=== PATIENT | female | born 1935 | race Caucasian/White ===

== ENCOUNTER 2021-08-31 00:15 | Inpatient (IN) | payer MEDICARE ==
[~2021-08-31] VITALS: Ht 154.9 cm; Wt 53.2 kg
[2021-08-31 00:46] LABS: GLUCOSE,POINT OF CARE 150 MG/DL (70-110)
[2021-08-31 01:29] LABS: COVID AG,FIA SOURCE NASOPHARYNGEAL
[2021-08-31 01:40] LABS: BASOPHILS % (AUTO) 0.7 % (0.0-2.0); EOSINOPHILS % (AUTO) 0.5 % (1.0-6.0); HEMOGLOBIN 12.1 g/dL (12.0-16.0); LYMPHOCYTES # (AUTO) 1.8 K/uL (1.0-4.8); LYMPHOCYTES % (AUTO) 22.5 % (22.0-44.0); MEAN CORPUSCULAR HEMOGLOBIN 30.1 pg (26.0-34.0); MEAN CORPUSCULAR HGB CONC 33.6 G/dL (31.0-37.0); MEAN CORPUSCULAR VOLUME 90 fL (80-100); MONOCYTES # (AUTO) 0.8 K/uL (0.1-1.0); MONOCYTES % (AUTO) 9.5 % (2.0-9.0); NEUTROPHILS # (AUTO) 5.4 K/uL (1.8-7.7); NEUTROPHILS % (AUTO) 66.8 % (40.0-70.0); PLATELET COUNT (AUTO) 228 K/uL (150-450); RED BLOOD CELL COUNT(AUTO) 4.01 MIL/uL (4.00-5.20); RED CELL DISTRIBUTION WIDTH 13.4 % (11.5-14.5)
[2021-08-31 01:41] LABS: AMPHET/METH SCREEN,URINE NEGATIVE (NEGATIVE); BARBITURATE SCREEN, URINE NEGATIVE (NEGATIVE); BENZODIAZEPINES SCREEN,URINE NEGATIVE (NEGATIVE); CANNABINOID SCREEN,URINE NEGATIVE (NEGATIVE); COCAINE SCREEN,URINE NEGATIVE (NEGATIVE); METHADONE SCREEN, URINE NEGATIVE (NEGATIVE); OPIATE SCREEN,URINE NEGATIVE (NEGATIVE)
[2021-08-31 01:42] LABS: ANION GAP 9 mmol/L (8-16); CALCIUM, TOTAL 8.6 mg/dL (8.8-10.5); CARBON DIOXIDE 25 mmol/L (22-29); CHLORIDE 106 mmol/L (98-107); CREATININE 0.81 mg/dL (0.60-1.30); GLUCOSE,RANDOM 119 mg/dL (70-110); POTASSIUM 4.4 mmol/L (3.5-5.1); SODIUM SERUM 140 mmol/L (136-145); UREA NITROGEN, BLOOD 25 mg/dL (7-18)
[2021-08-31 01:43] LABS: PHENCYCLIDINE SCREEN,URINE NEGATIVE (NEGATIVE)
[2021-08-31] MEDS ORDERED: QUEtiapine FUMARATE 100 MG TABLET PO PRN (01:45)
[2021-08-31 01:47] LABS: ALANINE AMINOTRANSFERASE 28 U/L (12-78); ALBUMIN 3.4 g/dL (3.4-5.0); ALKALINE PHOSPHATASE 66 U/L (46-116); ASPARTATE AMINOTRANSFERASE 27 U/L (15-37); BILIRUBIN,TOTAL 0.2 mg/dL (0.1-1.0); TOTAL PROTEIN, SERUM 6.8 g/dL (6.4-8.2)
[2021-08-31 01:49] LABS: GLOMERULAR FILTR. RATE CALC > 60 mL/min (>60)
[2021-08-31] MEDS: QUEtiapine FUMARATE 25 MG TABLET PO ONE ×2 (02:07→02:46)
[2021-08-31] MEDS: LORazepam 1 MG TABLET PO PRN ×2 (02:07→13:59)
[2021-08-31 02:58] LABS: APPEARANCE,URINE CLEAR (CLEAR); BILIRUBIN,URINE NEGATIVE (NEGATIVE); GLUCOSE, URINE (UA) 100 mg/dL (NEGATIVE); KETONES,URINE NEGATIVE (NEGATIVE); LEUKOCYTE ESTERASE ,URINE MODERATE (NEGATIVE); NITRATE,URINE NEGATIVE (NEGATIVE); OCCULT BLOOD,URINE NEGATIVE (NEGATIVE); PROTEIN,URINE NEGATIVE (NEGATIVE)
[2021-08-31 03:00] LABS: BACTERIA,URINE Few /HPF (None Seen); RBC,URINE 0-2 /HPF (0-2)
[2021-08-31] MEDS ORDERED: QUEtiapine FUMARATE 100 MG TABLET PO ONE (13:30)
[2021-08-31] MEDS ORDERED: LORazepam 1 MG TABLET PO ONE (13:30)
[2021-09-01 06:36] LABS: CHOL/HDL RATIO 2.5 (3.9-5.7); CHOLESTEROL 153 mg/dL (131-200); HDL CHOLESTEROL 61 mg/dL (40-60); LDL CHOL (CALC.) 75 mg/dL (0-130); TRIGLYCERIDES 86 mg/dL (15-150)
[2021-09-01] MEDS ORDERED: QUEtiapine FUMARATE 100 MG TABLET PO ONE (07:15)
[2021-09-01] MEDS ORDERED: LORazepam 1 MG TABLET PO ONE (07:15)
[2021-09-01] MEDS ORDERED: BACITRACIN 28 GM OINTMENT TP PRN (08:45)
[2021-09-01] MEDS ORDERED: DOCUSATE SODIUM 100 MG CAPSULE PO PRN (08:45)
[2021-09-01] MEDS ORDERED: PETROLATUM,WHITE 28 GM JELLY TP PRN (08:45)
[2021-09-01] MEDS ORDERED: ONDANSETRON HCL 4 MG TABLET PO PRN (08:45)
[2021-09-01] MEDS ORDERED: ACETAMINOPHEN 325 MG TABLET PO PRN (08:45)
[2021-09-01] MEDS ORDERED: OMEPRAZOLE 20 MG CAPSULE PO PRN (08:45)
[2021-09-01] MEDS ORDERED: ALBUTEROL SULFATE HFA 90 MCG/PUFF 8 GM INHALER IH PRN (08:45)
[2021-09-01] MEDS ORDERED: MAG HYDROX/AL HYDROX/SIMETH ES 30 ML SUSPENSION UDCUP PO PRN (08:45)
[2021-09-01] MEDS ORDERED: MAGNESIUM HYDROXIDE SUSPENSION 30 ML UDCUP PO PRN (08:45)
[2021-09-01] MEDS ORDERED: LOPERAMIDE HCL 2 MG CAPSULE PO PRN (08:45)
[2021-09-01] MEDS ORDERED: CloNIDine HCL 0.1 MG TABLET PO PRN (08:45)
[2021-09-01] MEDS ORDERED: BENZOCAINE/MENTHOL LOZENGE PO PRN (08:45)
[2021-09-01] MEDS: METOPROLOL TARTRATE 25 MG TABLET PO SCH ×2 (09:34→09:36)
[2021-09-01 10:03] VITALS: BP 154/75
[2021-09-01 10:55] VITALS: BP 154/75
[2021-09-01] MEDS ORDERED: INFLUENZA VIRUS VACCINE QVS 2021-22 (6MO+)/PF 60 MCG/0.5 ML SYRINGE IM. ONE (11:30)
[2021-09-01] MEDS ORDERED: PNEUMOCOCCAL VACCINE POLYVALENT 0.5 ML VIAL [PPSV23] IM. ONE (11:45)
[2021-09-01 16:32] VITALS: BP 131/84
[2021-09-01 18:32] VITALS: BP 131/84
[2021-09-01] MEDS: LORazepam 1 MG TABLET PO PRN (19:01)
[2021-09-02] MEDS: METOPROLOL TARTRATE 25 MG TABLET PO SCH ×2 (09:00→16:42)
[2021-09-02] MEDS: RisperiDONE 1 MG TABLET PO SCH ×2 (09:00→16:42)
[2021-09-02 16:00] VITALS: BP 135/70
[2021-09-03 08:00] VITALS: BP 133/83
[2021-09-03 08:43] LABS: CHOL/HDL RATIO 3.1 (3.9-5.7); HEMOGLOBIN A1C 6.1 % (3.8-5.6)
[2021-09-03] MEDS: RisperiDONE 1 MG TABLET PO SCH ×2 (09:00→16:26)
[2021-09-03] MEDS: METOPROLOL TARTRATE 25 MG TABLET PO SCH ×2 (09:00→16:26)
[2021-09-03 09:54] LABS: THYROID STIMULATING HORMONE 2.32 uIU/mL (0.36-3.74)
[2021-09-03 17:03] VITALS: BP 148/84
[2021-09-04] MEDS: RisperiDONE 1 MG TABLET PO SCH ×2 (09:00→16:26)
[2021-09-04] MEDS: METOPROLOL TARTRATE 25 MG TABLET PO SCH ×2 (09:00→16:26)
[2021-09-04 09:20] VITALS: BP 133/69
[2021-09-04 16:15] VITALS: BP 125/76
[2021-09-05 08:19] VITALS: BP 155/93
[2021-09-05] MEDS: METOPROLOL TARTRATE 25 MG TABLET PO SCH ×2 (08:44→17:00)
[2021-09-05] MEDS: RisperiDONE 2 MG TABLET PO SCH ×2 (08:45→17:00)
[2021-09-06] MEDS: METOPROLOL TARTRATE 25 MG TABLET PO SCH ×2 (09:00→16:41)
[2021-09-06] MEDS: RisperiDONE 2 MG TABLET PO SCH ×2 (09:00→16:41)
[2021-09-06 14:08] LABS: APPEARANCE,URINE CLEAR (CLEAR); BILIRUBIN,URINE NEGATIVE (NEGATIVE); GLUCOSE, URINE (UA) NEGATIVE (NEGATIVE); KETONES,URINE NEGATIVE (NEGATIVE); LEUKOCYTE ESTERASE ,URINE TRACE (NEGATIVE); NITRATE,URINE NEGATIVE (NEGATIVE); OCCULT BLOOD,URINE NEGATIVE (NEGATIVE); PROTEIN,URINE NEGATIVE (NEGATIVE); UROBILINOGEN,URINE 0.2 mg/dL (<=1.0)
[2021-09-06 14:42] LABS: BACTERIA,URINE None Seen /HPF (None Seen); RBC,URINE None Seen /HPF (0-2); WBC,URINE 0-2 /HPF (0-5)
[2021-09-06] MEDS: MEMANTINE HCL 5 MG TABLET PO SCH (16:41)
[2021-09-07 08:21] LABS: COVID AG,FIA SOURCE NASAL SWAB
[2021-09-07 08:24] VITALS: BP 111/58
[2021-09-07] MEDS: RisperiDONE 2 MG TABLET PO SCH ×2 (09:00→16:48)
[2021-09-07] MEDS: METOPROLOL TARTRATE 25 MG TABLET PO SCH ×2 (09:00→16:48)
[2021-09-07] MEDS: MEMANTINE HCL 5 MG TABLET PO SCH ×2 (09:00→16:48)
[2021-09-07 16:00] VITALS: BP 102/60
[2021-09-07 17:08] VITALS: BP 102/60
[2021-09-08 08:29] VITALS: BP 141/77
[2021-09-08] MEDS: MEMANTINE HCL 5 MG TABLET PO SCH ×2 (09:00→17:00)
[2021-09-08] MEDS: RisperiDONE 2 MG TABLET PO SCH ×2 (09:00→17:04)
[2021-09-08] MEDS: METOPROLOL TARTRATE 25 MG TABLET PO SCH ×2 (09:00→17:00)
[2021-09-08 16:31] VITALS: BP 137/68
[2021-09-09] MEDS: METOPROLOL TARTRATE 25 MG TABLET PO SCH ×2 (07:50→17:00)
[2021-09-09] MEDS: MEMANTINE HCL 5 MG TABLET PO SCH ×2 (07:50→17:00)
[2021-09-09] MEDS: RisperiDONE 2 MG TABLET PO SCH ×2 (07:50→17:00)
[2021-09-09] MEDS: IBUPROFEN 600 MG TABLET PO PRN (07:51)
[2021-09-09 08:29] VITALS: BP 128/56
[2021-09-09 16:25] VITALS: BP 111/58
[2021-09-10 08:00] VITALS: BP 110/74
[2021-09-10] MEDS: MEMANTINE HCL 5 MG TABLET PO SCH ×2 (09:00→16:41)
[2021-09-10] MEDS: RisperiDONE 2 MG TABLET PO SCH ×2 (09:00→16:41)
[2021-09-10] MEDS: METOPROLOL TARTRATE 25 MG TABLET PO SCH ×2 (09:00→16:41)
[2021-09-10] MEDS: IBUPROFEN 600 MG TABLET PO PRN (11:21)
[2021-09-10 18:48] VITALS: BP 145/70
[2021-09-11 08:34] VITALS: BP 118/80
[2021-09-11] MEDS: MEMANTINE HCL 5 MG TABLET PO SCH ×2 (11:32→16:23)
[2021-09-11] MEDS: RisperiDONE 2 MG TABLET PO SCH ×2 (11:32→16:23)
[2021-09-11] MEDS: METOPROLOL TARTRATE 25 MG TABLET PO SCH ×2 (11:32→16:23)
[2021-09-11 16:15] VITALS: BP 112/69
[2021-09-12 08:00] VITALS: BP 156/66
[2021-09-12] MEDS: MEMANTINE HCL 5 MG TABLET PO SCH ×2 (10:29→16:49)
[2021-09-12] MEDS: METOPROLOL TARTRATE 25 MG TABLET PO SCH ×2 (10:29→16:49)
[2021-09-12] MEDS: RisperiDONE 2 MG TABLET PO SCH ×2 (10:30→16:50)
[2021-09-12 17:05] VITALS: BP 92/67
[2021-09-13 08:00] VITALS: BP 138/62
[2021-09-13] MEDS: MEMANTINE HCL 5 MG TABLET PO SCH ×2 (08:29→17:00)
[2021-09-13] MEDS ORDERED: RisperiDONE 2 MG TABLET PO SCH (09:00)
[2021-09-13] MEDS: METOPROLOL TARTRATE 25 MG TABLET PO SCH ×2 (09:00→17:00)
[2021-09-13] MEDS ORDERED: METO25 PO (14:42)
[2021-09-13 16:03] VITALS: BP 116/58
== END 2021-09-13 18:15 | disposition home or self-care (01) | DRG 885 ==
LOC: EMS 00:15 → 3EC 09-01 04:24
PROVIDERS: ADMIT Psychiatry & Neurology Psychiatry; ATTEND Psychiatry & Neurology Psychiatry
DX: F29 Unspecified psychosis not due to a substance or known physiological condition (principal); F03.90 Unspecified dementia, unspecified severity, without behavioral disturbance, psychotic disturbance, mood disturbance, and anxiety; G47.00 Insomnia, unspecified; F22 Delusional disorders; I10 Essential (primary) hypertension; F41.9 Anxiety disorder, unspecified; M19.90 Unspecified osteoarthritis, unspecified site; Z60.2 Problems related to living alone; K59.00 Constipation, unspecified; Z20.822 Contact with and (suspected) exposure to COVID-19; S20.222A Contusion of left back wall of thorax, initial encounter; X58.XXXA Exposure to other specified factors, initial encounter; Y93.89 Activity, other specified; Y92.89 Other specified places as the place of occurrence of the external cause; Y99.8 Other external cause status; Z59.00 Homelessness unspecified
CPT/HCPCS: 70450; 71046; 80053; 80061; 81001; 82962; 83036; 84443; 85025; 86592; 99285; G0480; 36415-L1; 36415-TC